=== PATIENT | female | born 2000 | race Caucasian/White ===

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

== ENCOUNTER 2019-02-20 17:01 | Emergency (ER) | payer OTHER ==
--- NOTE | 2019-02-20 17:24 | EDPHY ---
H & P Stated Complaint: hit in the head with wooden beam, feels confused Time Seen by Provider: 02/20/19 17:14 - Personal History LMP (Females 10-55): Extended Cycle BCP/Inj - Medical/Surgical History Hx Asthma: No Hx Chronic Respiratory Disease: No Hx Diabetes: No Hx Cardiac Disease: No Hx Renal Disease: No Hx Cirrhosis: No Hx Alcoholism: No Hx HIV/AIDS: No Hx Splenectomy or Spleen Trauma: No Other PMH: denies - Social History Smoking Status: Never smoked Constitutional: Initial Vital Signs Temperature (C) 36.7 C 02/20/19 17:05 Heart Rate 112 H 02/20/19 17:05 Respiratory Rate 18 02/20/19 17:05 Blood Pressure 114/79 02/20/19 17:05 O2 Sat (%) 96 02/20/19 17:05 O2 Delivery Mode Room Air Allergies/Adverse Reactions: No Known Allergies Allergy (Verified 02/20/19 17:04) Home Medications: Medication Instructions Recorded Bcp 12/28/17 Medical Decision Making - Diagnostics Imaging Results: Imaging Impressions Head CT 02/20/19 17:26 Impression: No acute intracranial process. Findings and recommendations discussed with Marciano Fernando MD at 1751 hour, . Imaging: I viewed and interpreted images myself ED Course/Re-evaluation: CHIEF COMPLAINT: Head injury HISTORY OF PRESENT ILLNESS: The patient is a 18 y/o female arriving via private vehicle for a head injury today. Per the patient and her friend, the patient was sitting behind a wooden fence, when the fence fell and hit her head. The patient remembers the fence hitting her, but cannot recall the events directly after the injury. Her friend notes that the patient seems more confused than normal. No fever, body aches, lightheadedness, chest pain, heart palpitations, shortness of breath, cough, abdominal pain, urinary or bowel complaints, numbness, paresthesias. REVIEW OF SYSTEMS: A 10 point review of systems was performed and is negative with the exception of the elements mentioned in the history of present illness. PHYSICAL EXAM: HR, BP, O2 Sat, RR. Temp noted General Appearance: Alert, well hydrated, appropriate, and non-toxic appearing. Head: Atraumatic without scalp tenderness or obvious injury Eyes: Pupils equal, round, reactive to light and accommodation, EOMI, no trauma , no injection. Ears: Clear bilaterally, no perforation, normal landmarks Nose: Atraumatic, no rhinorrhea, clear. Throat: There is no erythema or exudates, no lesions, normal tonsils, mucus membranes moist. Neck: Supple, 2+ carotid upstroke, nontender, no lymphadenopathy. Respiratory: No retractions, no distress, no wheezes, and no accessory muscle use. Lungs are clear to auscultation bilaterally. Cardiovascular: Regular rate and rhythm, no murmurs, rubs, or gallops. Bilateral carotid, radial, dorsalis pedis, and posterior tibial pulses intact. Good capillary refill all extremities. Gastrointestinal: Abdomen is soft, nontender, non-distended, no masses, no rebound, no guarding, no peritoneal signs. Musculoskeletal: Normal active ROM of all extremities, atraumatic. Neurological: Retrograde amnesia. Alert, appropriate, and interactive. The patient has normal DTRs and non-focal cranial nerves, motor, sensory, and cerebellar exam. Skin: No rashes, good turgor, no nodules on palpation. Past medical history: Denies Past surgical history: Denies Family history: Denies Social history: Friend at bedside, single, student DIAGNOSTICS/PROCEDURES/CRITICAL CARE TIME: Head CT: No acute findings. DIFFERENTIAL DIAGNOSIS: The differential diagnosis for the patient's head injury included but was not limited to concussion, skull fracture, intra-parenchymal contusion, subarachnoid , subdural and epidural hematoma. MEDICAL DECISION MAKING: The patient is a 18 y/o female arriving via private vehicle for a head injury today. Per the patient and her friend, the patient was sitting behind a wooden fence, when the fence fell and hit her head. The patient remembers the fence hitting her, but cannot recall the events directly after the injury. On exam the patient has retrograde amnesia but an otherwise normal exam. Due to her amnesia, she meets [place] Head CT criteria. Patient is comfortable with plan for head CT. 1750: I spoke with Dr. Coles, radiologist, who reports there are no acute findings on the patient's head CT. 1754: Reassessed patient and discussed normal imaging findings. I have advised her to follow post-concussive precautions and follow up with Dr. Magallanes. Return precautions provided; patient is comfortable with this plan. Departure - Departure Disposition: Home, Routine, Self-Care Clinical Impression: Head injury Qualifiers: Encounter type: initial encounter Qualified Code(s): S09.90XA - Unspecified injury of head, initial encounter Concussion Qualifiers: Encounter type: initial encounter Loss of consciousness presence/duration: without LOC Qualified Code(s): S06.0X0A - Concussion without loss of consciousness, initial encounter Condition: Good Instructions: Concussion (ED), Head Injury (ED) Additional Instructions: 1. Apply ice to sore areas and take 600mg ibuprofen every 6-8 hours or 650mg Tylenol every 4-6 hours for pain for the next few days. 2. Cognitive rest while symptoms are present. Avoid screen time including TV, phones, and computers until symptoms improve. 3. Physical rest while symptoms are present. Avoid any activities that could put you at further risk for a head injury until your symptoms resolve including contact sports, bicycling, etc. This may be 2 weeks or longer. 4. Follow up with Dr. Magallanes, head injury specialist, for unimproved symptoms over the next 10-14 days. It's not uncommon to experience fatigue, mood swings, and difficulty concentrating with concussions. 5. Return to the ED for severe headache, weakness or numbness on one side of your body, vision changes, or other worsening of condition. Referrals: My Magallanes MD [Medical Doctor] - As per Instructions Stand Alone Forms: School Excuse Report Scribed for: Marciano Fernando Report Scribed by: Mónica Hall Date of Report: 02/20/19 Time of Report: 17:55
[2019-02-20 18:22] VITALS: BP 106/70
== END 2019-02-20 18:22 | disposition home or self-care (01) ==
DX: S06.0X0A Concussion without loss of consciousness, initial encounter (principal); W20.8XXA Other cause of strike by thrown, projected or falling object, initial encounter